=== PATIENT | female | born 1985 | race African-American/Black ===

== ENCOUNTER 2016-07-29 18:14 | Emergency (ER) | payer MEDICAID ==
[~2016-07-29] VITALS: Ht 160 cm; Wt 82.0 kg
[2016-07-29 18:17] VITALS: BP 108/70; PULSE 82; RESP 17; TEMP 98.1; O2SAT 98
[2016-07-29 18:30] VITALS: RESP 16; O2SAT 100
[2016-07-29] MEDS ORDERED: SODIUM CHLOR 0.9% 1000 ML INJ 1,000 ML IV ONE (18:36)
--- NOTE | 2016-07-29 18:44 | PD ---
HPI Chief Complaint: Headache Time Seen by Provider: 18:30 Travel History International Travel<30 days: No Contact w/Intl Traveler<30days: No Traveled to known affect area: No History of Present Illness HPI 31-year-old female presents for evaluation of cephalgia. Symptoms started yesterday. She describes it as an aching pain in the occiput and right parietal scalp region that radiates into the right retro-orbital region. Pain is constant. She reports that she has had similar headaches about twice a week ever since she was a child, and this headache feels similar. She did develop nausea today and that's why she decided to come for evaluation. She feels like she is going to vomit but she has not vomited. She does endorse some photophobia in the right eye as well. Denies recent illness. She reports that she tends to get the headaches more frequently when she eats junk food. She reports that she has been trying to diet in an effort to avoid the headaches but today she had a lot of junk food when traveling back from [place]. She also endorses a pruritic intermittent rash in the right arm and armpit region over the past week. Denies any unusual skin exposures. She has no other complaints. PFSH Past Medical History Diminished Hearing: No Headaches: Yes Tetanus Vaccination: Unknown Influenza Vaccination: No ?: Not LMP: 07/19/16 Social History Alcohol Use: No Tobacco Use: No Substance Use: No Allergies-Medications (Allergen,Severity, Reaction): Coded Allergies: No Known Allergies (Unverified , 07/29/16) Reported Meds & Prescriptions Reported Meds & Active Scripts Active No Active Prescriptions or Reported Medications Review of Systems Except as stated in HPI: all other systems reviewed are Neg Physical Exam Narrative GENERAL: Well-nourished well-nourished female in no acute distress SKIN: Warm and dry. The patient has pictures which show a papular rash on her right arm and hand and axilla. Currently there is no obvious rash on examination. No petechiae, no vesicles, no pustules, no urticaria HEAD: Atraumatic. Normocephalic. EYES: Pupils equal and round reactive to light extraocular muscles are intact no conjunctival injection or ciliary flush ptosis. No scleral icterus. No injection or drainage. ENT: No nasal bleeding or discharge. Mucous membranes pink and moist. NECK: Trachea midline. No JVD. CARDIOVASCULAR: Regular rate and rhythm. No murmur appreciated. RESPIRATORY: No accessory muscle use. Clear to auscultation. Breath sounds equal bilaterally. GASTROINTESTINAL: Abdomen soft, non-tender, nondistended. Hepatic and splenic margins not palpable. MUSCULOSKELETAL: No obvious deformities. No edema NEUROLOGICAL: Awake and alert. No obvious cranial nerve deficits. Motor grossly within normal limits. Normal speech. PSYCHIATRIC: Appropriate mood and affect; insight and judgment normal. Data Data Last Documented VS Vital Signs Date Time Temp Pulse Resp B/P Pulse Ox O2 Delivery O2 Flow Rate FiO2 07/29/16 19:08 16 Room Air 07/29/16 19:07 91 111/70 100 07/29/16 18:17 98.1 Orders Complete Blood Count With Diff (07/29/16 18:36) Basic Metabolic Panel (Bmp) (07/29/16 18:36) Ct Brain W/O Iv Contrast(Rout) (07/29/16 18:36) Iv Access Insert/Monitor (07/29/16 18:36) Acetaminophen (Tylenol) (07/29/16 18:45) Diphenhydramine Inj (Benadryl Inj) (07/29/16 18:45) Metoclopramide Inj (Reglan Inj) (07/29/16 18:45) Sodium Chlor 0.9% 1000 Ml Inj (Ns 1000 M (07/29/16 18:36) Ed Urine Pregnancytest Poc (07/29/16 18:36) Ketorolac Inj (Toradol Inj) (07/29/16 19:15) Labs Laboratory Tests Test 07/29/16 18:45 White Blood Count 12.9 TH/MM3 Red Blood Count 4.13 MIL/MM3 Hemoglobin 11.9 GM/DL Hematocrit 36.1 % Mean Corpuscular Volume 87.3 FL Mean Corpuscular Hemoglobin 28.7 PG Mean Corpuscular Hemoglobin 32.9 % Concent Red Cell Distribution Width 13.1 % Platelet Count 261 TH/MM3 Mean Platelet Volume 9.4 FL Neutrophils (%) (Auto) 67.6 % Lymphocytes (%) (Auto) 23.8 % Monocytes (%) (Auto) 6.8 % Eosinophils (%) (Auto) 1.4 % Basophils (%) (Auto) 0.4 % Neutrophils # (Auto) 8.7 TH/MM3 Lymphocytes # (Auto) 3.1 TH/MM3 Monocytes # (Auto) 0.9 TH/MM3 Eosinophils # (Auto) 0.2 TH/MM3 Basophils # (Auto) 0.0 TH/MM3 CBC Comment DIFF FINAL Differential Comment Sodium Level 141 MEQ/L Potassium Level 3.7 MEQ/L Chloride Level 105 MEQ/L Carbon Dioxide Level 25.9 MEQ/L Anion Gap 10 MEQ/L Blood Urea Nitrogen 21 MG/DL Creatinine 1.00 MG/DL Estimat Glomerular Filtration 64 ML/MIN Rate Random Glucose 86 MG/DL Calcium Level 8.4 MG/DL [facility] Medical Decision Making Medical Screen Exam Complete: Yes Emergency Medical Condition: Yes Medical Record Reviewed: Yes Interpretation(s) CT of the brain is normal cbc wbc 12.9 otherwise wnl bmp calcium 8.4, BUN 21 otherwise unremarkable urine test negative Differential Diagnosis Migraine, tension headache, cluster headache, pseudotumor cerebri, mass, corneal abrasion, acute glaucoma, keratitis, iritis Narrative Course 31-year-old female here with right sided headache similar in nature to headaches that she has had twice week ever since she was a child. In addition she has nausea today as well as photophobia the right eye. She is also had an intermittent pruritic rash in the right arm which appears papular based on her pictures on her phone. She's never had any sort of neuro imaging despite this long-standing history of headaches. Therefore CT of the brain is been ordered as well as basic lab work, IV Reglan and Benadryl and fluids. She will be reassessed. 1915: Upon reexamination the patient's headache is resolved. Her CT scan is normal. CBC reveals mild leukocytosis otherwise unremarkable. She is stable for outpatient follow-up. Diagnosis Primary Impression: Headache Qualified Code: R51 - Nonintractable headache, unspecified chronicity pattern , unspecified headache type Additional Instructions: Stay well-hydrated and well-nourished. Follow-up with the primary care physician as needed and return for any emergent medical conditions. Med/Other Pt SpecificInfo: No Change to Meds Scripts No Active Prescriptions or Reported Meds Disposition: 01 DISCHARGE HOME Condition: Stable Michael Alexandre Jul 29, 2016 18:44
[2016-07-29] MEDS ORDERED: diphenhydrAMINE HCL 50 MG/ML VIAL IVP ONE (18:45)
[2016-07-29] MEDS ORDERED: ACETAMINOPHEN 325 MG TAB PO ONE (18:45)
[2016-07-29] MEDS ORDERED: METOCLOPRAMIDE HCL 10 MG/2 ML VIAL IVP ONE (18:45)
--- NOTE | 2016-07-29 19:02 | RADRPT ---
EXAM DATE/TIME: 07/29/2016 18:52 [facility] COMPARISON: No previous studies available for comparison. INDICATIONS : Cephalgia and nausea for two days. RADIATION DOSE: 40.62 CTDIvol (mGy) MEDICAL HISTORY : None SURGICAL HISTORY : None. ENCOUNTER: Initial ACUITY: 2 days PAIN SCALE: 7/10 LOCATION: Bilateral head TECHNIQUE: Multiple contiguous axial images were obtained of the head. Using automated exposure control and adj ustment of the mA and/or kV according to patient size, radiation dose was kept as low as reasonably a chievable to obtain optimal diagnostic quality images. FINDINGS: CEREBRUM: The ventricles are normal for age. No evidence of midline shift, mass lesion, hemorrhage or acute in farction. No extra-axial fluid collections are seen. POSTERIOR FOSSA: The cerebellum and brainstem are intact. The 4th ventricle is midline. The cerebellopontine angle i s unremarkable. EXTRACRANIAL: The visualized portion of the orbits is intact. SKULL: The calvaria is intact. No evidence of skull fracture. CONCLUSION: Normal examination. Genaro Vallejo MD on July 29, 2016 at 19:00 Board Certified Radiologist. This report was verified electronically.
[2016-07-29 19:07] VITALS: BP 111/70; PULSE 91; RESP 16; O2SAT 100
[2016-07-29 19:08] LABS: AUTOMATED NEUTROPHIL # 8.7 TH/MM3 (1.8-7.7); BASOPHIL % 0.4 % (0.0-2.0); EOSINOPHIL # 0.2 TH/MM3 (0-0.4); EOSINOPHIL % 1.4 % (0.0-4.0); HEMATOCRIT 36.1 % (35.0-46.0); HEMO FLAGS DIFF FINAL; LYMPH % 23.8 % (9.0-44.0); LYMPHOCYTE # 3.1 TH/MM3 (1.0-4.8); MEAN CELL VOLUME 87.3 FL (80.0-100.0); MEAN CORPUSCULAR HEMOGLOBIN 28.7 PG (27.0-34.0); MEAN CORPUSCULAR HGB CONC 32.9 % (32.0-36.0); MONO % 6.8 % (0.0-8.0); NEUT % 67.6 % (16.0-70.0); PLATELET COUNT 261 TH/MM3 (150-450); RED BLOOD COUNT 4.13 MIL/MM3 (4.00-5.30); RED CELL DISTRIBUTION WIDTH 13.1 % (11.6-17.2); WHITE BLOOD COUNT 12.9 TH/MM3 (4.0-11.0)
--- NOTE | 2016-07-29 19:13 | PD ---
Data Data Last Documented VS Vital Signs Date Time Temp Pulse Resp B/P Pulse Ox O2 Delivery O2 Flow Rate FiO2 07/29/16 19:08 16 Room Air 07/29/16 19:07 91 111/70 100 07/29/16 18:17 98.1 Orders Complete Blood Count With Diff (07/29/16 18:36) Basic Metabolic Panel (Bmp) (07/29/16 18:36) Ct Brain W/O Iv Contrast(Rout) (07/29/16 18:36) Iv Access Insert/Monitor (07/29/16 18:36) Acetaminophen (Tylenol) (07/29/16 18:45) Diphenhydramine Inj (Benadryl Inj) (07/29/16 18:45) Metoclopramide Inj (Reglan Inj) (07/29/16 18:45) Sodium Chlor 0.9% 1000 Ml Inj (Ns 1000 M (07/29/16 18:36) Ed Urine Pregnancytest Poc (07/29/16 18:36) Ketorolac Inj (Toradol Inj) (07/29/16 19:15) Labs Laboratory Tests Test 07/29/16 18:45 White Blood Count 12.9 TH/MM3 Red Blood Count 4.13 MIL/MM3 Hemoglobin 11.9 GM/DL Hematocrit 36.1 % Mean Corpuscular Volume 87.3 FL Mean Corpuscular Hemoglobin 28.7 PG Mean Corpuscular Hemoglobin 32.9 % Concent Red Cell Distribution Width 13.1 % Platelet Count 261 TH/MM3 Mean Platelet Volume 9.4 FL Neutrophils (%) (Auto) 67.6 % Lymphocytes (%) (Auto) 23.8 % Monocytes (%) (Auto) 6.8 % Eosinophils (%) (Auto) 1.4 % Basophils (%) (Auto) 0.4 % Neutrophils # (Auto) 8.7 TH/MM3 Lymphocytes # (Auto) 3.1 TH/MM3 Monocytes # (Auto) 0.9 TH/MM3 Eosinophils # (Auto) 0.2 TH/MM3 Basophils # (Auto) 0.0 TH/MM3 CBC Comment DIFF FINAL Differential Comment MDM Supervised Visit with TAVON: Yes Narrative Course The history, exam, and medical decision-making in the associated midlevel provider note were completed with my assistance. I reviewed and agree with the findings presented. I attest that I had a [id number] encounter with the patient on the same day, and personally performed and documented my assessment and findings in the medical record. *My assessment and Findings: This is a 31-year-old female who presents to the emergency department with recurrent headaches in the right parietal area. She' s been having headaches like this for years. She said today she had some more nausea which worried her. She came to she really just wanted to get checked out. CT imaging is reassuring. Patient likely requires outpatient evaluation by a neurologist. She has a normal neurologic exam. I think she can be discharged. She feels much better after Tylenol. Scripts No Active Prescriptions or Reported Meds Karma Hunter MD Jul 29, 2016 19:13
[2016-07-29] MEDS ORDERED: KETOROLAC TROMETHAMINE 30 MG/ML (IVP) VIAL IV PUSH ONE (19:15)
[2016-07-29 19:37] LABS: BICARBONATE 25.9 MEQ/L (21.0-32.0); POTASSIUM 3.7 MEQ/L (3.5-5.1)
== END 2016-07-29 21:01 | disposition home or self-care (01) ==
LOC: NEPA 18:14
DX: R51 Headache (principal); R11.0 Nausea
CPT/HCPCS: 70450; 80048; 84703; 85025; 96374; 96375; 99284; J1200; J1885; J2765; J7030

== ENCOUNTER 2016-11-19 16:13 | Emergency (ER) | payer MEDICAID, OTHER ==
[~2016-11-19] VITALS: Ht 160 cm; Wt 84.0 kg
[2016-11-19 16:16] VITALS: BP 130/80; PULSE 88; RESP 24; TEMP 98.6; O2SAT 97
--- NOTE | 2016-11-19 17:02 | PD ---
Physical Exam Time Seen by Provider: 17:01 Narrative 31yo F c/o R great toe pain after a bottle of liquor fell on it today. Patient seen in triage. VS reviewed. Awaiting bed placement. Data Data Last Documented VS Vital Signs Date Time Temp Pulse Resp B/P Pulse Ox O2 Delivery O2 Flow Rate FiO2 11/19/16 16:16 98.6 88 24 130/80 97 Room Air MDM Supervised Visit with TAVON: No Scripts No Active Prescriptions or Reported Meds Angie Sung Nov 19, 2016 17:02
--- NOTE | 2016-11-19 17:31 | RADRPT ---
EXAM DATE/TIME: 11/19/2016 17:22 [facility] COMPARISON: No previous studies available for comparison. INDICATIONS : Right foot, 1st digit pain after dropping object on foot. MEDICAL HISTORY : None. SURGICAL HISTORY : None. ENCOUNTER: Initial ACUITY: 1 day PAIN SCORE: 10/10 LOCATION: Right foot, 1st digit. FINDINGS: Three view examination of the right foot demonstrates no soft tissue swelling, dislocation, or fractu re. The tarsal bones appear intact. The interphalangeal and metatarsophalangeal joints are intact. The calcaneus is intact. Bony mineralization is normal. CONCLUSION: Negative for fracture or dislocation. Follow up in 7-10 days is suggested if symptoms persist. Zeyad Brody MD FACR on November 19, 2016 at 17:28 Board Certified Radiologist. This report was verified electronically.
--- NOTE | 2016-11-19 19:21 | PD ---
HPI Chief Complaint: Injury Time Seen by Provider: 19:09 Travel History International Travel<30 days: No Contact w/Intl Traveler<30days: No Traveled to known affect area: No History of Present Illness HPI 31yo F with no PMH presents to the ED with c/o right big toe pain today. States she was at work and a bottle of liquor fell on her right big toe at 3: 30pm today. Denies any other injuries. Denies any fever, chest pain, sob, n/v , abdominal pain, focal weakness or numbness. PFSH Past Medical History Medical History: Denies Significant Hx Diminished Hearing: No Headaches: Yes ?: Not LMP: 11/05/16 Past Surgical History Surgical History: No Previous Surgery Social History Alcohol Use: No Tobacco Use: No Substance Use: No Allergies-Medications (Allergen,Severity, Reaction): Coded Allergies: No Known Allergies (Unverified , 11/19/16) Reported Meds & Prescriptions Reported Meds & Active Scripts Active No Active Prescriptions or Reported Medications Review of Systems Except as stated in HPI: all other systems reviewed are Neg Physical Exam Narrative GENERAL: 31yo F not in distress. SKIN: Focused skin assessment warm/dry. HEAD: Atraumatic. Normocephalic. CARDIOVASCULAR: Regular rate and rhythm. No murmur appreciated. RESPIRATORY: No accessory muscle use. Clear to auscultation. Breath sounds equal bilaterally. GASTROINTESTINAL: Abdomen soft, non-tender, nondistended. MUSCULOSKELETAL: Right foot: +TTP 1st toe, IP joint. There is no open wound, no laceration, no erythema, or edema. DP 2+. Able to wiggle all toes. NEUROLOGICAL: Awake and alert. No obvious cranial nerve deficits. Motor grossly within normal limits. Normal speech. PSYCHIATRIC: Appropriate mood and affect; insight and judgment normal. Data Data Last Documented VS Vital Signs Date Time Temp Pulse Resp B/P Pulse Ox O2 Delivery O2 Flow Rate FiO2 11/19/16 16:16 98.6 88 24 130/80 97 Room Air Orders Foot, Complete ([id number]) (11/19/16 17:02) [facility] Medical Decision Making Medical Screen Exam Complete: Yes Emergency Medical Condition: Yes Differential Diagnosis Contusion vs. fracture Narrative Course 31yo F with right toe pain s/p having a bottle of liquor fall on her big toe from around 4 feet. No open wounds. No bleeding. Xray of right foot showed no fracture of dislocation. Instructed pt to follow up with PMD and to obtain another xray if pain persisted after 7-10 days. Pt given ibuprofen. States she is unable to bear weight on it so crutches given. Diagnosis Primary Impression: Toe contusion Qualified Code: S90.111A - Contusion of right great toe without damage to nail , initial encounter Patient Instructions: General Instructions Departure Forms: Tests/Procedures Additional Instructions: Please follow up with your PMD in 7-10 days. Return to the ED if symptoms worsen. Med/Other Pt SpecificInfo: Prescription(s) given Scripts Ibuprofen 600 Mg Vya164 Mg PO Q8HR PRN (PAIN) #20 TAB Ref 0 Prov:Ruthann Guillermo DO 11/19/16 Disposition: 01 DISCHARGE HOME Condition: Stable Ruthann Guillermo DO Nov 19, 2016 19:21
[2016-11-19] MEDS ORDERED: IBUP-232 PO (19:27)
[2016-11-19] MEDS ORDERED: IBUPROFEN 600 MG TAB PO ONE (19:30)
== END 2016-11-19 20:16 | disposition home or self-care (01) ==
LOC: NEPD 16:13
DX: S90.111A Contusion of right great toe without damage to nail, initial encounter (principal); W22.8XXA Striking against or struck by other objects, initial encounter; Y99.0 Civilian activity done for income or pay
CPT/HCPCS: 73630; 99283